=== PATIENT | female | born 1955 | race Caucasian/White ===

== ENCOUNTER 2017-05-11 23:17 | Emergency (ER) | payer OTHER ==
[~2017-05-11] VITALS: Ht 175.3 cm; Wt 56.7 kg
[~2017-05-11 23:17] MED LIST: LEVAQUIN500 MG PO; PHENERGAN 25MG.25 M1 PO
--- OUTSIDE RECORDS SUMMARY | 2017-05-11 23:34 | External Medical Summary Rpt | CCD ---
Author Author , DANIEL SANCHEZ Address Unknown Phone [email or web address] Purpose Continuity of Care Document - 11-10-2016 through 2016 Problems Code Diagnosis DOS Provider Status R51 HEADACHE 04-10-2017 Z88.5 ALLERGY 04-10-2017 STATUS TO NARCOTIC AGENT STATUS M25.561 PAIN IN 11-10-2016 RIGHT KNEE
--- OUTSIDE RECORDS SUMMARY | 2017-05-11 23:34 | External Medical Summary Rpt | CCD ---
Demographics Preferred Language Estonian Marital Status Unknown Buddhism Affiliation Unknown Race Unknown Ethnic Group Unknown Author Author , DANIEL SANCHEZ Address Unknown Phone Immunization No patient found.
--- OUTSIDE RECORDS SUMMARY | 2017-05-11 23:34 | External Medical Summary Rpt | CCD ---
Author Author [employer] Organization [employer] Address Unknown Phone Unavailable Purpose Continuity of Care Document - through 2016
--- OUTSIDE RECORDS SUMMARY | 2017-05-11 23:34 | External Medical Summary Rpt | CCD ---
Author Author , DANIEL SANCHEZ Address Unknown Phone [email or web address] Purpose Continuity of Care Document - 11-10-2016 through 2016 Problems Code Diagnosis DOS Provider Status R51 HEADACHE 04-10-2017 Z88.5 ALLERGY 04-10-2017 STATUS TO NARCOTIC AGENT STATUS M25.561 PAIN IN 11-10-2016 RIGHT KNEE
--- OUTSIDE RECORDS SUMMARY | 2017-05-11 23:34 | External Medical Summary Rpt | CCD ---
Demographics Preferred Language Nepali Marital Status Unknown Zoroastrianism Affiliation Unknown Race Unknown Ethnic Group Unknown Author Author , DANIEL SANCHEZ Address Unknown Phone Immunization No patient found.
[2017-05-11 23:42] LABS: HEMOGLOBIN 14.8 g/dL (12.2-16.2); LYMPH % 15.3 % (10-50.0)
--- NOTE | 2017-05-11 23:48 | Emergency Room Report ---
History of Present Illness Time Seen by 232Mary Presenting Problem in Triage Pt arrived:Wheelchair Presenting Problem:C/O PAIN TO CHEST, HEADACHE, NAUSEA, VOMITING AND DIARRHEA X 24 HOURS. 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 N Clinical Suspician of Infection? N Mental Status: 1 - Regular (Normal Baseline) Sepsis Risk:Low Sepsis Risk Have you (or family members/close friends) recently traveled outside the [place]? N If Yes, where/when: Have you had exposure to infectious disease within the past month? N TB? Other? Specify: Source patient, RN notes reviewed, family, old records Exam Limitations no limitations Comment headache assoc with chest pain and n/v with loose stool w/o fever or rash and no trauma Cardiac Chest Pain Chest pain indicative of cardiac No Timing/Duration this evening Severity moderate ALLERGIES Coded Allergies: meperidine (From DEMEROL) (Severe, 05/11/17) History Medical History General CAD? No Angina: No [place]: No Hypertension? No Hyperlipidemia? Yes CHF? No DVT? No PE? No COPD? No Asthma? No Anemia? No GERD? No Gastric ulcers? No GI Bleed? No Hernia? No Thyroid Problems? No Hypothyroidism? No CVA? Yes Seizures? No Diabetes? No Renal Insuffiency? No End Stage Renal Disease? No UTI? No Stones? No BPH? No GB Disease: No Nephritic Syndrome? No Asplenia? No Hepatitis? No Sickle Cell Disease? No Arthritis? Yes Migraines? Yes Cataracts? No Glaucoma? No MRSA? No HIV? No TB? No Anxiety? No Depression? No Cancer? No More? 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 Respiratory denies cough, denies shortness of breath, denies wheezing Cardiovascular denies chest pain, denies syncope Gastrointestinal see HPI, nausea, vomiting Genitourinary denies: dysuria, frequency, hesitancy, hematuria. Musculoskeletal denies back pain, denies joint pain, denies joint swelling, denies neck pain Skin denies rash Psychiatric/Neurological see HPI, headache, denies seizure Physical Exam Vital Signs Vital Signs Date Time Temp Pulse Resp B/P Pulse O2 O2 Flow FiO2 Ox Delivery Rate 05/12 0045 81 18 149/89 98 05/11 2345 18 05/11 2319 97.5 92 18 131/94 98 - WBC >12,000 or <4,000 or 10% bands? 2 or more SIRS Criteria Met? B/P:149/89 MAP:106 Creatinine >2.0? UA output<0.5ml/kg/hr for 2 hrs? Platelet count >100,000? Lactate >2.0mmol/1? INR >1.2 or PTT > than 60 sec? Evidence of Organ Dysfunction? Provider documented clinical suspician of infection? N Sepsis Criteria Count: 1 Sepsis Risk: Low Sepsis Risk General Appearance no apparent distress Eye Exam - bilateral eye PERRL, bilateral eye EOMI Ear, Nose, Throat normal ENT inspection Neck non-tender Respiratory Status No: respiratory distress. Lung Sounds bilateral: lungs clear. 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 No Results/Orders Laboratory Tests 05/11/17 2357: Sodium 135 L, Potassium 3.9, Chloride 102, Carbon Dioxide 27, BUN 10, Creatinine 0.6, Estimated Creat Clear 90, Estimated GFR (MDRD) 102, Glucose 112 H, Calcium 8.8, Total Bilirubin 0.5, AST 22, ALT 38, Alkaline Phosphatase 80, Creatine Kinase 122, CK-MB (CK-2) Rel Index 1.2, CK and CKMB Interp 1.5, Troponin I < 0.02, Total Protein 6.6, Albumin 3.5, Globulin 3.1, Albumin/ Globulin Ratio 1.1 05/11/172329: WBC 6.7, RBC 4.75, Hgb 14.8, Hct 43.6, MCV 91.9, RDW 12.0, Plt Count 256, MPV 7.6, Gran % 80.3 H, Gran # 5.3, Lymphocytes % 15.3, Monocytes % 2.5, Eosinophils % 1.7, Basophils % 0.3, Lymphocytes # 1.0, Monocytes # 0.2, Eosinophils # 0.1, Basophils # 0.0, PUBS MCHC 33.9, MCH 31.2 Current Medication Orders Sig/Teresa Start time Last Medication Dose Route Stop Time Status Admin Ketorolac 0 .STK-MED ONE 05/11 2340 DC Tromethamine .ROUTE Ondansetron HCl 0 .STK-MED ONE 05/11 2340 DC .ROUTE Sodium Chloride 1,000 ML .STK-MED ONE 05/11 2339 DC IV Ketorolac 30 MG ONCE ONE 05/11 2330 DC 05/11 Tromethamine IV 05/11 2331 2345 Ondansetron HCl 4 MG ONCE ONE 05/11 2330 DC 05/11 IV 05/11 233 2344 Sodium Chloride 10 ML PRN PRN 05/11 233 AC IV 05/12 2328 Sodium Chloride 1,000 ML .Q1H1M 05/11 2330 DC 05/11 IV 05/12 0030 2344 Sodium Chloride 10 ML PRN PRN 05/11 2330 AC IV 05/12 2329 Orders Procedure Date/time Status DIET-NOTHING BY MOUTH 05/12 B Active CHEST(2 VIEWS-NOT PORTABLE) 05/[address] HEAD W/O CONTRAST 05/[address] HEAD REQ 05/11 2346 Complete ELECTROCARDIOGRAM REQUEST 05/11 2330 Active IV SALINE LOCK 05/11 2330 Active CBC WITH AUTO DIFF 05/11 2330 Complete CARDIAC ENZYMES 05/11 2330 Complete CHEM 12 PROFILE 05/11 2330 Complete 12 LEAD EKG-ELIZABETH (INITIAL) 05/11 231 Active 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 ST/Twave chgs XRAY/CT/US XRAY/CT/US XRAY chest XR interpretation by reviewed by me Xray Results normal/NAD CT head CT interpretation by discussed w/radiologist Time results known: 010 CT Results normal/NAD Departure Departure Time of Disposition 011 Disposition DC Home or Self Care(routine) Clinical Impression Primary Impression: Headache Qualifiers: Headache type: unspecified Headache chronicity pattern: acute headache Intractability: not intractable Qualified Code: R51 - Headache Secondary Impressions: Chest pain Qualifiers: Chest pain type: unspecified Qualified Code: R07.9 - Chest pain, unspecified Condition STABLE Patient Instructions DI for Headache Additional Instructions see pcp for follow up Discharge Counseling Counseled pt/family regarding diagnosis, test results, medications/RX, follow up needs ED Critical Care Critical Care No at 0110
--- NOTE | 2017-05-11 23:48 | Emergency Room Report ---
History of Present Illness Time Seen by 232Mary Presenting Problem in Triage Pt arrived:Wheelchair Presenting Problem:C/O PAIN TO CHEST, HEADACHE, NAUSEA, VOMITING AND DIARRHEA X 24 HOURS. 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 N Clinical Suspician of Infection? N Mental Status: 1 - Regular (Normal Baseline) Sepsis Risk:Low Sepsis Risk Have you (or family members/close friends) recently traveled outside the [place]? N If Yes, where/when: Have you had exposure to infectious disease within the past month? N TB? Other? Specify: Source patient, RN notes reviewed, family, old records Exam Limitations no limitations Comment headache assoc with chest pain and n/v with loose stool w/o fever or rash and no trauma Cardiac Chest Pain Chest pain indicative of cardiac No Timing/Duration this evening Severity moderate ALLERGIES Coded Allergies: meperidine (From DEMEROL) (Severe, 05/11/17) History Medical History General CAD? No Angina: No [place]: No Hypertension? No Hyperlipidemia? Yes CHF? No DVT? No PE? No COPD? No Asthma? No Anemia? No GERD? No Gastric ulcers? No GI Bleed? No Hernia? No Thyroid Problems? No Hypothyroidism? No CVA? Yes Seizures? No Diabetes? No Renal Insuffiency? No End Stage Renal Disease? No UTI? No Stones? No BPH? No GB Disease: No Nephritic Syndrome? No Asplenia? No Hepatitis? No Sickle Cell Disease? No Arthritis? Yes Migraines? Yes Cataracts? No Glaucoma? No MRSA? No HIV? No TB? No Anxiety? No Depression? No Cancer? No More? 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 Respiratory denies cough, denies shortness of breath, denies wheezing Cardiovascular denies chest pain, denies syncope Gastrointestinal see HPI, nausea, vomiting Genitourinary denies: dysuria, frequency, hesitancy, hematuria. Musculoskeletal denies back pain, denies joint pain, denies joint swelling, denies neck pain Skin denies rash Psychiatric/Neurological see HPI, headache, denies seizure Physical Exam Vital Signs Vital Signs Date Time Temp Pulse Resp B/P Pulse O2 O2 Flow FiO2 Ox Delivery Rate 05/12 0045 81 18 149/89 98 05/11 2345 18 05/11 2319 97.5 92 18 131/94 98 - WBC >12,000 or <4,000 or 10% bands? 2 or more SIRS Criteria Met? B/P:149/89 MAP:106 Creatinine >2.0? UA output<0.5ml/kg/hr for 2 hrs? Platelet count >100,000? Lactate >2.0mmol/1? INR >1.2 or PTT > than 60 sec? Evidence of Organ Dysfunction? Provider documented clinical suspician of infection? N Sepsis Criteria Count: 1 Sepsis Risk: Low Sepsis Risk General Appearance no apparent distress Eye Exam - bilateral eye PERRL, bilateral eye EOMI Ear, Nose, Throat normal ENT inspection Neck non-tender Respiratory Status No: respiratory distress. Lung Sounds bilateral: lungs clear. 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 No Results/Orders Laboratory Tests 05/11/17 2357: Sodium 135 L, Potassium 3.9, Chloride 102, Carbon Dioxide 27, BUN 10, Creatinine 0.6, Estimated Creat Clear 90, Estimated GFR (MDRD) 102, Glucose 112 H, Calcium 8.8, Total Bilirubin 0.5, AST 22, ALT 38, Alkaline Phosphatase 80, Creatine Kinase 122, CK-MB (CK-2) Rel Index 1.2, CK and CKMB Interp 1.5, Troponin I < 0.02, Total Protein 6.6, Albumin 3.5, Globulin 3.1, Albumin/ Globulin Ratio 1.1 05/11/172329: WBC 6.7, RBC 4.75, Hgb 14.8, Hct 43.6, MCV 91.9, RDW 12.0, Plt Count 256, MPV 7.6, Gran % 80.3 H, Gran # 5.3, Lymphocytes % 15.3, Monocytes % 2.5, Eosinophils % 1.7, Basophils % 0.3, Lymphocytes # 1.0, Monocytes # 0.2, Eosinophils # 0.1, Basophils # 0.0, PUBS MCHC 33.9, MCH 31.2 Current Medication Orders Sig/Teresa Start time Last Medication Dose Route Stop Time Status Admin Ketorolac 0 .STK-MED ONE 05/11 2340 DC Tromethamine .ROUTE Ondansetron HCl 0 .STK-MED ONE 05/11 2340 DC .ROUTE Sodium Chloride 1,000 ML .STK-MED ONE 05/11 2339 DC IV Ketorolac 30 MG ONCE ONE 05/11 2330 DC 05/11 Tromethamine IV 05/11 2331 2345 Ondansetron HCl 4 MG ONCE ONE 05/11 2330 DC 05/11 IV 05/11 233 2344 Sodium Chloride 10 ML PRN PRN 05/11 233 AC IV 05/12 2328 Sodium Chloride 1,000 ML .Q1H1M 05/11 2330 DC 05/11 IV 05/12 0030 2344 Sodium Chloride 10 ML PRN PRN 05/11 2330 AC IV 05/12 2329 Orders Procedure Date/time Status DIET-NOTHING BY MOUTH 05/12 B Active CHEST(2 VIEWS-NOT PORTABLE) 05/[address] HEAD W/O CONTRAST 05/[address] HEAD REQ 05/11 2346 Complete ELECTROCARDIOGRAM REQUEST 05/11 2330 Active IV SALINE LOCK 05/11 2330 Active CBC WITH AUTO DIFF 05/11 2330 Complete CARDIAC ENZYMES 05/11 2330 Complete CHEM 12 PROFILE 05/11 2330 Complete 12 LEAD EKG-ELIZABETH (INITIAL) 05/11 231 Active 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 ST/Twave chgs XRAY/CT/US XRAY/CT/US XRAY chest XR interpretation by reviewed by me Xray Results normal/NAD CT head CT interpretation by discussed w/radiologist Time results known: 010 CT Results normal/NAD Departure Departure Time of Disposition 011 Disposition DC Home or Self Care(routine) Clinical Impression Primary Impression: Headache Qualifiers: Headache type: unspecified Headache chronicity pattern: acute headache Intractability: not intractable Qualified Code: R51 - Headache Secondary Impressions: Chest pain Qualifiers: Chest pain type: unspecified Qualified Code: R07.9 - Chest pain, unspecified Condition STABLE Patient Instructions DI for Headache Additional Instructions see pcp for follow up Discharge Counseling Counseled pt/family regarding diagnosis, test results, medications/RX, follow up needs ED Critical Care Critical Care No at 0116
[2017-05-12 00:35] LABS: BUN 10 mg/dL (7-18)
[2017-05-12 00:36] LABS: GFR (ESTIMATED) 102 ML/MIN (59-)
[2017-05-12 02:00] VITALS: BP 149/89
--- NOTE | 2017-05-12 05:03 | RADIOLOGY REPORT PS360 ---
CT HEAD W/O CONTRAST HISTORY: Headache C/O RECENT CVA ORDERING PHYSICIAN: Katherine Solis MD PATIENT AGE: 61 years COMPARISON: None TECHNIQUE: Axial images obtained without contrast. Brain and bone windows reviewed. FINDINGS: No midline shift, mass effect, intracranial hemorrhage, hydrocephalus, or extra-axial fluid collection is evident. The calvarium has an unremarkable appearance. No mastoid effusion. There is mild mucosal thickening of the ethmoid sinuses. IMPRESSION: No acute intracranial findings. Mild ethmoid sinus inflammatory change.
--- NOTE | 2017-05-12 05:16 | RADIOLOGY REPORT PS360 ---
CHEST(2 VIEWS-NOT PORTABLE) HISTORY: C/O CHEST PAIN ORDERING PHYSICIAN: Katherine Solis MD PATIENT AGE: 61 years COMPARISON: None available FINDINGS: The cardiomediastinal silhouette and pulmonary vascularity are within normal limits. There is hyperinflation with attenuation of the peripheral pulmonary vessels consistent with COPD. No lobar consolidation or collapse. There is a 9 mm faint opacity in the right perihilar region overlying the fourth rib medially and may be due to summation artifact. This may be confirmed with follow-up to exclude pulmonary nodule. No acute bony anomalies. IMPRESSION: 1. COPD. 2. Right perihilar nodular opacity possibly related to summation density. Recommend follow-up chest radiograph to confirm stability
== END 2017-05-12 02:00 | disposition home or self-care (01) ==
LOC: ER 23:17
PROVIDERS: Emergency Medicine
DX: R51 Headache (principal); R07.9 Chest pain, unspecified; R11.2 Nausea with vomiting, unspecified; R19.7 Diarrhea, unspecified; I10 Essential (primary) hypertension
CPT/HCPCS: J2405